=== PATIENT | male | born 1955 | race African-American/Black ===

== ENCOUNTER 2022-06-20 08:34 | Emergency (ER) | payer OTHER, MEDICARE ==
[~2022-06-20] VITALS: Ht 182.9 cm; Wt 81.0 kg
[2022-06-20 08:46] VITALS: BP 114/72
[2022-06-20] MEDS ORDERED: TETANUS, DIPHTHERIA, PERTUSSIS VAC/PF 0.5ML (>10YR OLD) IM ONE (09:30)
[2022-06-20 10:55] LABS: CHLORIDE 104 mEq/L (98-107)
[2022-06-20 10:57] LABS: HEMATOCRIT. 44.5 % (42.0-52.0); HEMOGLOBIN. 14.6 g/dL (14.0-18.0); MEAN CORPUSCULAR HEMOGLOBIN 28.1 pg (28.0-32.0); MEAN CORPUSCULAR VOLUME 85.5 fL (80.0-94.0); MEAN PLATELET VOLUME 8.7 fl (7.4-10.4); PLATELET 134 x1000/uL (130-400)
[2022-06-20 11:19] LABS: PLATELET ESTIMATE NORMAL
== END 2022-06-20 11:52 | disposition home or self-care (01) ==
LOC: ER 08:49
DX: S01.81XA Laceration without foreign body of other part of head, initial encounter (principal); R55 Syncope and collapse; R94.31 Abnormal electrocardiogram [ECG] [EKG]; W01.198A Fall on same level from slipping, tripping and stumbling with subsequent striking against other object, initial encounter; Y93.89 Activity, other specified; Y92.012 Bathroom of single-family (private) house as the place of occurrence of the external cause
CPT/HCPCS: 12011; 36415; 80053; 85025; 93005; 99284